=== PATIENT | female | born 1975 | race Caucasian/White ===

== ENCOUNTER 2022-12-25 19:19 | Emergency (ER) | payer SELFPAY ==
[2022-12-25 19:51] VITALS: BP 130/87; PULSE 75; RESP 16; TEMP 98.8; BMI 25.2
[2022-12-25 22:02] LABS: THROAT:GRP A STREP NOT DETECTED (NOTDETECTED)
== END 2022-12-25 20:08 | disposition home or self-care (01) ==
LOC: FER 19:19
DX: U07.1 COVID-19 (principal); R07.0 Pain in throat
CPT/HCPCS: 0241U-QW; 87651; 99283-25